=== PATIENT | male | born 1955 | race Caucasian/White ===

== ENCOUNTER 2016-08-26 16:22 | Emergency (ER) | payer OTHER ==
--- NOTE | 2016-08-26 18:49 | PROVIDER DOCUMENTATION ---
HPI-Neurological Disorder - General Source: patient - History of Present Illness-Neuro Headache Location: reports: global (PT STATES "MY HEAD ALWAYS HURTS".) Severity: reports: mild Onset/Duration: reports: last night Timing: reports: gone now Context: reports: other Character of Altered Mental Status: reports: decreased responsiveness Any recent trauma/injury?: reports: none New weakness or altered sensation location:: reports: none Cognitive Baseline: alert, oriented x3 Gait Baseline: walks without assistance Associated Symptoms: reports: headache, nausea. 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 [Oxycontin] 20 mg PO BID 11/21/14 08/26/16 08/26/16 History Gabapentin 1 tab PO TID 11/28/14 08/26/16 08/26/16 History Docusate Sodium [Stool Softener] 100 mg PO BID 08/26/16 08/26/16 Unknown History Folic Acid 1 mg PO DAILY 08/26/16 08/26/16 08/26/16 History Oxycodone E.r. 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 (Fidel Esqueda) Review of Systems - Adult - REVIEW OF SYSTEMS - ADULT Constitutional: denies: chills, fever, night sweats Eyes: denies: discharge, decreased vision, blurred vision, double vision Ears, Nose, Mouth & Throat: denies: ear discharge, sinus problem, throat pain Cardiovascular: denies: chest pain, heart murmur, palpitations Respiratory: denies: cough, shortness of breath, wheezing Gastrointestinal: reports: nausea. denies: abdominal pain, diarrhea, vomiting Genitourinary: denies: dysuria, flank pain, hematuria Integumentary: denies: hives, itching, rash Neurological: reports: headache/migraines. denies: loss of balance, numbness All Other Systems: Reviewed and Negative <Fidel Esqueda - Last Filed: 08/26/16 19:29> Past History - Adult - PAST MEDICAL HISTORY-ADULT Review of Records: reports: Nursing Assessment Review, Medications Reviewed Other Conditions: reports: other cancer (lung with mets to brain) - PRIOR SURGERIES/PROCEDURES Surgical/Procedure History: reports: other (brain met resection x 4) - FAMILY HISTORY Family History: reviewed, not pertinent - SOCIAL HISTORY Smoking: denies Substance Use: none/never Alcohol Use Frequency: never Living Situation: family <Fidel Esqueda - Last Filed: 08/26/16 19:29> Physical Exam- Neurological - Physical Exam-Neuro Initial Vital Signs Reviewed: Yes General Appearance: alert, no apparent distress Eye Exam: bilateral eye: normal inspection, PERRL, EOMI HENMT: normocephalic/atraumatic, moist mucous membranes Head Injury: no evidence of injury Neck: non-tender, full range of motion, supple, normal inspection Respiratory: chest non-tender, no pleuratic chest pain, no respiratory distress , no accessory muscle use Cardiovascular: normal peripheral pulses, regular rate, rhythm, no edema, no gallop, no JVD, no murmur Abdominal Exam: normal bowel sounds, non tender, soft, no organomegaly, no pulsatile mass Extremity: normal range of motion, non-tender, normal inspection, no pedal edema , no calf tenderness, 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 Exam: normal hearing, normal speech, PERRL Coordination/Gait: normal finger to nose, normal gait, negative Romberg's sign Motor/Sensory: no motor deficit, no sensory deficit, no pronator drift Integumentary: normal color, normal turgor, warm/dry Psych/Mental Status: normal mood/affect, normal thought content, normal thought process, oriented x 3 - Glascow Coma Scale Best Eye Response: (4) open spontaneously Best Verbal Response: (5) oriented Best Motor Response: (6) obeys commands Total Glascow Score: 15 <Fidel Esqueda - Last Filed: 08/26/16 19:29> Progress - CT/MRI 1 CT Study: Head Comparison with other Films: no changes CT Results: no acute changes.no hemorrhage <Fidel Esqueda - Last Filed: 08/26/16 19:29> Departure <Fidel Esqueda - Last Filed: 08/26/16 19:29> - Departure Time of Disposition Order: 19:32 Certified Medical Emergency: Emergent <Kerwin Jasso - Last Filed: 08/26/16 19:33> - Departure DIAGNOSIS: Transient neurological symptoms Disposition: HOME 01 Condition: Fair Physician Attestation
[2016-08-26 20:02] VITALS: BP 137/87
--- NOTE | 2016-08-27 07:27 | Diag Imaging Result Document ---
PROCEDURE NAME: HEAD W/O CONTRAST - 08/26/[address]: A CT dose reduction protocol was used. COMPARISON: 04/30/2016. FINDINGS: Stable right craniectomy changes. Stable significant white matter hypodensity of the superior cerebral hemispheres bilaterally, left greater than right. There are several stable small hyperdensities here bilaterally presumably soft tissue calcifications within the brain matter. No intracranial mass or hemorrhage. The ventricles and sulci remain grossly normal. The sinuses are clear. IMPRESSION: No acute disease or change from prior. [facility]
== END 2016-08-26 20:02 | disposition home or self-care (01) ==
LOC: ED 16:22
DX: R29.818 Other symptoms and signs involving the nervous system (principal); R51 Headache; R11.0 Nausea; R20.0 Anesthesia of skin; Z79.899 Other long term (current) drug therapy; Z85.118 Personal history of other malignant neoplasm of bronchus and lung; Z85.841 Personal history of malignant neoplasm of brain
CPT/HCPCS: 70450